=== PATIENT | female | born 1970 | race Caucasian/White ===

== ENCOUNTER 2016-05-15 12:21 | Emergency (ER) | payer SELFPAY ==
[2016-05-15 12:48] LABS: URINE MUCUS NONE SEEN (Up to 25%); URINE RBC NONE SEEN (0-5/hpf); URINE WBC NONE SEEN (0-4/hpf)
[2016-05-15 12:53] LABS: BASOPHIL# 0.1 X 10^3uL (0.0-0.1); EOSINOPHILS 0.4 % (0.0-6.0); HEMATOCRIT 44.4 % (36.0-48.0); HEMOGLOBIN 14.6 g/dL (12.0-16.0); LYMPHOCYTES 30.8 % (20.0-40.0); LYMPHOCYTES# 1.5 X 10^3uL (0.8-3.8); MEAN CORPUS. HGB CONCENTRATION 32.9 g/dL (32.0-36.0); MEAN CORPUSCULAR HEMOGLOBIN 29.6 pg (29.0-35.0); MEAN PLATELET VOLUME 7.8 fL (7.4-10.4); MONOCYTES 7.2 % (2.0-10.0); MONOCYTES# 0.4 X 10^3uL (0.2-1.0); NEUTROPHILS 60.6 % (54.0-75.0); PLATELET COUNT 401 X 10^3uL (130-440); RED BLOOD COUNT 4.94 X 10^6uL (4.20-6.10); RED CELL DISTRIBUTION WIDTH 12.6 % (11.5-14.5)
[2016-05-15] MEDS ORDERED: ONDANSETRON HCL 4 MG/2 ML VIAL ONE ×2 (12:55→14:45)
[2016-05-15] MEDS ORDERED: HYDROmorphone HCL 1 MG/ML SYR ONE ×2 (12:55→13:39)
[2016-05-15 13:01] LABS: ALBUMIN 4.9 g/dL (3.5-5.0); ALKALINE PHOSPHATASE 60 U/L (38-126); ALT 37 U/L (9-52); AST 37 U/L (14-36); BILIRUBIN, DIRECT 0.4 mg/dL (0.0-0.4); BLOOD UREA NITROGEN 13 mg/dL (7-17); CHLORIDE 103 mmol/L (98-107); CREATININE 0.8 mg/dL (0.5-1.0); EST GLOMERULAR FILTRATION RATE > 60 mL/min; GLUCOSE 108 mg/dL (70-100); LIPASE 125 U/L (23-300); POTASSIUM 3.8 mmol/L (3.5-5.1); SODIUM 145 mmol/L (137-145); TOTAL PROTEIN 8.7 g/dL (6.3-8.2)
[2016-05-15 13:08] LABS: URINE APPEARANCE CLEAR; URINE BACTERIA <10 ORGANISMS/hpf (<10/hpf); URINE BILIRUBIN NEGATIVE (NEGATIVE); URINE BLOOD NEGATIVE (NEGATIVE); URINE COLOR YELLOW; URINE GLUCOSE NORMAL (NEGATIVE); URINE KETONE NEGATIVE (NEGATIVE); URINE LEUKOCYTE ESTERASE NEGATIVE (NEGATIVE); URINE NITRITE NEGATIVE (NEGATIVE); URINE PH 5.5 (5-7); URINE PROTEIN NEGATIVE (NEG - TRACE); URINE SPECIFIC GRAVITY < or = 1.005 (0.001-1.035); URINE SQUAMOUS EPITHELIAL CELL 0-5/hpf (<= 15/hpf); URINE UROBILINOGEN 0.2mg/dL (Normal) (NEG-1mg/dL)
--- NOTE | 2016-05-15 15:32 | US REPORT ---
Emergent right upper quadrant ultrasound was performed. No prior study is available for comparison. The gallbladder and biliary tree appear unremarkable. No stones, wall thickening, duct dilatation or fluid collection is identified. The liver, right kidney and aorta appear unremarkable. Limited images of the pancreas are unremarkable. IMPRESSION: Unremarkable emergent right upper quadrant ultrasound. The findings were provided to Dr. Fallon upon completion of the examination. NICOLE
--- NOTE | 2016-05-15 15:32 | RADIOLOGY REPORT ---
A limited single portable view of the chest demonstrates the heart, vessels and lungs to be unremarkable. No infiltrate, fluid or pneumothorax is seen. IMPRESSION: Unremarkable limited single portable view of the chest. MTDD
--- NOTE | 2016-05-15 17:44 | ER NURSING DOCUMENTATION ---
Nurse's Notes [facility] Name:Kika Rios Age:45 yrs Sex:Female :1970 Arrival Date:05/15/2016 Time:12:21 Bed3 Private MD: Diagnosis:Non-Cardiac Chest Pain Presentation: 05/15 12:29 Acuity: CARINA 3 st 12:59 Presenting complaint: Patient states: pt has had right sided pain for the last two st weeks. the pain is RUQ into the epigastric area and under the right breast. today the pain got so bad it causes her to pass out. Transition of care: Home. 12:59 Method Of Arrival: Private Vehicle st Triage Assessment: 12:30 General: Appears uncomfortable, Behavior is crying. st 12:30 Pain: Complains of pain in epigastric area and right upper quadrant Pain currently is 9 st out of 10 on a pain scale. Pain began been building for two weeks. Pain: Aggravated by using abd muscles to sit up or twist. Neuro: No deficits noted. Cardiovascular: No deficits noted. Respiratory: No deficits noted. GI: Abdomen is flat, non- distended Abd is soft X 4 quads Abdomen is tender to palpation in right upper quadrant when the RUQ is palpated pt has pain up under the right ribs. Historical: - Allergies: PENICILLINS; - Home Meds: 1. Vyvanse oral 2. Synthroid Oral 3. Xanax Oral - PMHx: HYPOTHYROIDISM; ADHD; - Tetanus: < 10 years. - Ebola Screening: : Patient denies exposure to infectious person. Patient denies travel to an Ebola-affected area in the 21 days before illness onset. . - Social history: Smoking status: Patient uses tobacco products, current some day smoker. Patient/guardian denies using alcohol, the patient reports quitting approximately 1 years ago, marijuana. Screenin:18 Infectious Disease Risk None. Abuse screen: Denies threats or abuse. Denies injuries st from another. Nutritional screening: No deficits noted. Assessment: 13:32 General: pt moaning and holding her side. . st 14:42 General: pt crying again from pain and nauseated from pain too. pt also states she does st not feel right but can not elaborate further. . 15:27 General: pt got very flushed and started dry heaving and feeling faint with sitting up. st pt laid back down.. 15:53 General: pt resting in bed.. st 16:37 General: pt states the nausea is getting better but the pain is coming back. pt is st trying to eat something and see how she feels. . 16:59 General: pt is now able to sit up. . st 17:[address] 17:39 General: pt still nauseated but states she is feeling much better with her pain being st around a 4-5. pt is able to stand walk and and not be crying. pt did vomit once as she was getting dressed but wanted to try to go home. . 17:43 General: taxi voucher given. . st Vital Signs: 12:30 BP 115 / 79; Pulse 101; Resp 18; Pulse Ox 96% ; Pain 9/10; st 12:55 BP 128 / 92; Pulse 95; Pulse Ox 98% on 2 lpm NC; st 13:25 Pain 0/10; st 13:31 Pain 9/10; st 13:32 BP 130 / 79; Pulse 77; Pulse Ox 100% ; st 14:09 BP 122 / 84; Pulse 89; Pulse Ox 93% ; st 14:10 Pain 4/10; st 14:30 BP 117 / 72; Pulse 82; st 14:43 Pain 10/10; st 14:45 Pain 4/10; st 15:00 BP 133 / 75; Pulse 81; Resp 17; st 15:33 Pulse Ox 86% on R/A; st 17:46 Pulse Ox 92% on R/A; Pain 4/10; st ED Course: 12:23 Patient arrived in ED. ama 12:29 Margot Nowak RN is Primary Nurse. st 12:33 Siddharth Fallon MD is Attending Physician. jm 12:[address] 12:43 Inserted peripheral IV: 20 gauge in left antecubital area and blood collected. st 12:43 Urine collected. Voided. st 13:00 Oxygen Oxygen administration via nasal cannula @ 2L/min. st 13:[address] 13:25 Pulse Ox - RN Monitoring Only NIBP On - RN Monitoring Only. Warm blanket given. st 13:45 Patient moved to [facility]. mk 14:08 Patient moved back from [facility]. mk 14:11 Diet: Patient given ice chips. st 14:35 Port Xray Completed. araceli 14:43 Cardiac Monitoring On for Nurse Monitoring only. st Administered Medications: 12:52 Drug: Zofran 4 mg; Route: IVP; Infused Over: 2 mins; Site: left antecubital; st 12:53 Follow up: Response: Nausea is decreased st 12:52 Drug: Dilaudid 1 mg; Route: IVP; Site: left antecubital; st 12:53 Follow up: Response: Pain is decreased st 12:58 Drug: NS 0.9% 1000 ml; Route: IV; Rate: bolus; Site: left antecubital; st 15:31 Follow up: IV Status: Completed infusion; IV Intake: 1000ml st 13:32 Drug: Dilaudid 0.5 mg; Route: IVP; Site: left antecubital; st 14:45 Follow up: Response: Pain is decreased st 14:44 Drug: Dilaudid 0.5 mg; Route: IVP; Site: left antecubital; st 14:46 Follow up: Response: Pain is decreased st 14:44 Drug: Zofran 4 mg; Route: IVP; Infused Over: 2 mins; Site: left antecubital; st 14:47 Follow up: Response: Nausea is decreased st 17:41 Drug: Zofran 8 mg; Route: PO; st 17:42 Follow up: Response: Medication administered at discharge. st Intake: 15:31 IV: 1000ml; Total: 1000ml. st Outcome: 15:02 Discharge ordered by . pramod 15:25 IV D/Carlitos st 17:41 Discharged to home ambulatory. st 17:41 Condition: improved 17:41 Discharge instructions given to patient, Instructed on discharge instructions, follow up and referral plans. medication usage, Prescriptions given X 3, pt has asked that the Synthroid rx be re written for 137 mcg and with do not substitute. 17:43 Patient [address] the ED. st 05/16 10:09 Discharge F/U Call: Spoke with: patient. Have you filled your prescriptions? no. nf Reasons not filled: patient states her car is at the hospital, she is "working on getting it back" and will fill prescriptions then; there is a corrected Synthroid prescription along with printed radiology reports at [facility], patient states she will pick them up this afternoon Did your discharge instructions answer all of your questions? yes Have you made a f/u appointment? No. Reason for no f/u appt: patient states she has not yet called for a follow up appointment Further F/U necessary? None needed Signatures: Margot Nowak, Guillermina Rooney RN, RN RN nf Meyer, John, MD MD jm Kimbro, Marcy mk Abbott, Jesus Lr, Reg Reg ama
--- NOTE | 2016-05-15 17:44 | ER PHYSICIAN DOCUMENTATION ---
Physician Documentation [facility] Name:Kika Rios Age:45 yrs Sex:Female :1970 Arrival Date:05/15/2016 Time:12:21 Bed3 Private MD: Siddharth Norris Disposition: 05/15/16 15:02 Discharged to Home/Self Care. Impression: Non-Cardiac Chest Pain. - Condition is Good. - Discharge Instructions: CHEST PAIN, Noncardiac, CHEST PAIN, Uncertain Cause. - Prescriptions for Vyvanse 70 mg Oral capsule - take 1 capsule by ORAL route once daily in the morning; 30 capsule. Synthroid 125 mcg Oral tablet - take 1 tablet by ORAL route once daily Do not substitute; 30 tablet. Percocet 5- 325 mg Oral Tablet - take 1 tablet by ORAL route every 6 hours As needed; 20 tablet. Zofran 4 mg Oral Tablet - take 1-2 tablet by ORAL route every 4-6 hours As needed; 10 tablet. - Medical Reconciliation form form. - Follow up: Private Physician; When: 2 weeks; Reason: Recheck today's complaints. Follow up: Emergency Department; When: As needed; Reason: Worsening of condition. - Problem is new. - Symptoms have improved. HPI: 05/15 13:00 This 45 yrs old Female presents to ER via Private Vehicle with complaints of jm Flank Pain - R. 13:00 The patient complains of pain in the right mid back. The pain radiates RUQ. Onset: The jm symptom(s)/episode began/occurred today. Modifying factors: the symptoms are aggravated by movement, deep breath. Associated signs and symptoms: Pertinent positives: vomiting. Severity of pain: in the emergency department the pain is unchanged. The patient has not experienced similar symptoms in the past. The patient has not recently seen a physician. Pt w RUQ/flank pain for a day. Pt also w mild SOB and pleuracy. . Historical: - Allergies: PENICILLINS; - Home Meds: 1. Vyvanse oral 2. Synthroid Oral 3. Xanax Oral - PMHx: HYPOTHYROIDISM; ADHD; - Tetanus: < 10 years. - Ebola Screening: : Patient denies exposure to infectious person. Patient denies travel to an Ebola-affected area in the 21 days before illness onset. . - Social history: Smoking status: Patient uses tobacco products, current some day smoker. Patient/guardian denies using alcohol, the patient reports quitting approximately 1 years ago, marijuana. ROS: 13:00 Constitutional: Negative for fatigue, fever, malaise. jm 13:00 ENT: Negative for rhinorrhea, sinus congestion, sinus pain, sore throat. 13:00 Cardiovascular: Positive for chest pain. 13:00 Respiratory: Positive for dyspnea on exertion, shortness of breath. 13:00 Abdomen/GI: Positive for abdominal pain. 13:00 Back: Positive for radiated pain. 13:00 : Positive for flank pain. 13:00 MS/extremity: Negative for swelling, tenderness. 13:00 Skin: Negative for rash, swelling. Exam: 13:00 Constitutional: The patient appears alert, awake. jm 13:00 Head/face: Exam is negative for hatch signs, contusion. 13:00 Eyes: Periorbital structures: appear normal, Conjunctiva: normal. 13:00 ENT: Mouth: is normal, Voice: is normal. 13:00 Neck: Thyroid: appears normal, Trachea: is midline with no obvious abnormalities. 13:00 Chest/axilla: Palpation: is normal, tenderness, is not appreciated, Breasts: are normal. 13:00 Cardiovascular: Rate: normal, Rhythm: regular. 13:00 Respiratory: Respirations: normal, Breath sounds: are normal. 13:00 Abdomen/GI: Bowel sounds: normal, Palpation: moderate abdominal tenderness, in the right upper quadrant. 13:00 Back: pain, is absent, CVA tenderness, is absent. 13:00 : CVA tenderness, is absent, Bladder: is normal. 13:00 Skin: Appearance: Color: pink, no rash present. 13:00 Neuro: Mentation: is normal, Memory: is normal. 13:00 Psych: Behavior/mood is pleasant, cooperative, Affect is calm. Vital Signs: 12:30 BP 115 / 79; Pulse 101; Resp 18; Pulse Ox 96% ; Pain 9/10; st 12:55 BP 128 / 92; Pulse 95; Pulse Ox 98% on 2 lpm NC; st 13:25 Pain 0/10; st 13:31 Pain 9/10; st 13:32 BP 130 / 79; Pulse 77; Pulse Ox 100% ; st 14:09 BP 122 / 84; Pulse 89; Pulse Ox 93% ; st 14:10 Pain 4/10; st 14:30 BP 117 / 72; Pulse 82; st 14:43 Pain 10/10; st 14:45 Pain 4/10; st 15:00 BP 133 / 75; Pulse 81; Resp 17; st 15:33 Pulse Ox 86% on R/A; st 17:46 Pulse Ox 92% on R/A; Pain 4/10; st MDM: 12:32 Patient medically screened. pramod 13:30 Differential diagnosis: nephrolithiasis, pyelonephritis, pancreatitis, Radha, PE. Data pramod reviewed: vital signs, nurses notes, lab test result(s), EKG, radiologic studies, and as a result, I will discharge patient. Test interpretation: by ED physician or midlevel provider: plain radiologic studies. Counseling: I had a detailed discussion with the patient and/or guardian regarding: the historical points, exam findings, and any diagnostic results supporting the discharge/admit diagnosis, lab results, radiology results, the need for outpatient follow up, with the patient's primary care provider. Medication response: The patient's symptoms have improved. ED course: Pt w/u for PE and cholecystitis and both were negative. I do no have a great cause for abd pain, but pt insists there is something wrong, but she has no insurance and feels comfortable going home and is refusing more testing. Pt will RTED if pain gets worse. . 05/15 13:03 Order name: BASIC METABOLIC PANEL; Complete Time: 15:18 EDMS 05/15 13:03 Order name: HEPATIC PANEL; Complete Time: 15:18 EDMS 05/15 13:03 Order name: LIPASE; Complete Time: 15:18 EDMS 05/15 13:04 Order name: CBC AUTO DIF, MDIF/RMOR IF IND; Complete Time: 15:18 EDMS 05/15 13:10 Order name: UA W/ MICRO -CULTURE IF IND; Complete Time: 15:18 EDMS 05/15 14:37 Order name: DDIMER; Complete Time: 15:18 EDMS 05/15 15:46 Order name: US ABD LIMITED [id number] EDMS 05/15 15:46 Order name: CHEST; SINGLE VIEW [id number] EDMS 05/15 12:33 Order name: NPO; Complete Time: 12:44 pramod Dispensed Medications: 12:52 Drug: Zofran 4 mg; Route: IVP; Infused Over: 2 mins; Site: left antecubital; st 12:53 Follow up: Response: Nausea is decreased st 12:52 Drug: Dilaudid 1 mg; Route: IVP; Site: left antecubital; st 12:53 Follow up: Response: Pain is decreased st 12:58 Drug: NS 0.9% 1000 ml; Route: IV; Rate: bolus; Site: left antecubital; st 15:31 Follow up: IV Status: Completed infusion; IV Intake: 1000ml st 13:32 Drug: Dilaudid 0.5 mg; Route: IVP; Site: left antecubital; st 14:45 Follow up: Response: Pain is decreased st 14:44 Drug: Dilaudid 0.5 mg; Route: IVP; Site: left antecubital; st 14:46 Follow up: Response: Pain is decreased st 14:44 Drug: Zofran 4 mg; Route: IVP; Infused Over: 2 mins; Site: left antecubital; st 14:47 Follow up: Response: Nausea is decreased st 17:41 Drug: Zofran 8 mg; Route: PO; st 17:42 Follow up: Response: Medication administered at discharge. st Signatures: Margot Nowak RN RN st Meyer, John, MD MD jm
[2016-05-15] MEDS ORDERED: ONDANSETRON ODT 8 MG TAB.RAPDIS PO ONE (17:46)
== END 2016-05-15 17:44 | disposition home or self-care (01) ==
LOC: ER 12:21
DX: R07.89 Other chest pain (principal); R10.11 Right upper quadrant pain; M54.89 Other dorsalgia; R06.00 Dyspnea, unspecified; R06.02 Shortness of breath; Z79.899 Other long term (current) drug therapy; Z72.0 Tobacco use
CPT/HCPCS: 71010; 76705; 80048; 80076; 81001; 83690; 85025; 85379; 96361; 96374; 96375; 96376; 99285; J1170; J2405